=== PATIENT | female | born 1940 | race Caucasian/White ===

== ENCOUNTER 2017-04-21 13:31 | Day surgery (SDC) | payer MEDICARE ==
[~2017-04-21] VITALS: Ht 167.6 cm; Wt 119.8 kg
[~2017-04-21 13:31] MED LIST: Adult Low Dose81 MG PO; CIPR500 PO; CYCL10 PO; ENAL5; FURO40; Ferrous Sulfat325 M2 GT; Ferrous Sulfat325 MG; GLIP10ER PO; HYDACE5 PO; INSULANPEN; METF850 PO; NAPR550 PO; OXYACE5T PO; PARO10 PO; Pravachol40 MG PO; RXHYDACE PO; STOOL SOFTENER1 EAC1 PO; SYNTHROID175 MCG PO
== END 2017-04-21 16:28 | disposition home or self-care (01) ==
LOC: ORSCSDS 13:31
PROVIDERS: Internal Medicine Gastroenterology
PROC: 0DBL8ZX Excision of Transverse Colon, Via Natural or Artificial Opening Endoscopic, Diagnostic (ICD-10-PCS; principal; 2017-04-21 14:45)
PROC: 0DBK8ZX Excision of Ascending Colon, Via Natural or Artificial Opening Endoscopic, Diagnostic (ICD-10-PCS; principal; 2017-04-21 14:45)
PROC: 0DBH8ZX Excision of Cecum, Via Natural or Artificial Opening Endoscopic, Diagnostic (ICD-10-PCS; principal; 2017-04-21 14:45)
PROC: 0DB68ZX Excision of Stomach, Via Natural or Artificial Opening Endoscopic, Diagnostic (ICD-10-PCS; principal; 2017-04-21 14:45)
PROC: 0DBM8ZX Excision of Descending Colon, Via Natural or Artificial Opening Endoscopic, Diagnostic (ICD-10-PCS; principal; 2017-04-21 14:45)
DX: D50.9 Iron deficiency anemia, unspecified (principal); Z86.010 Personal history of colon polyps; K57.30 Diverticulosis of large intestine without perforation or abscess without bleeding; D12.0 Benign neoplasm of cecum; D12.3 Benign neoplasm of transverse colon; D12.4 Benign neoplasm of descending colon; K29.70 Gastritis, unspecified, without bleeding; I10 Essential (primary) hypertension; G47.33 Obstructive sleep apnea (adult) (pediatric); E11.9 Type 2 diabetes mellitus without complications; E03.9 Hypothyroidism, unspecified; E66.01 Morbid (severe) obesity due to excess calories; Z68.41 Body mass index [BMI] 40.0-44.9, adult; Z79.4 Long term (current) use of insulin; Z79.82 Long term (current) use of aspirin; Z79.899 Other long term (current) drug therapy
CPT/HCPCS: 82947; 87081; 88305; 88342

== ENCOUNTER 2018-06-14 06:06 | Day surgery (SDC) | payer MEDICARE ==
[~2018-06-14] VITALS: Ht 165.1 cm; Wt 119.8 kg
[~2018-06-14 06:06] MED LIST changes: -ENAL5; +ENAL5 PO; -FURO40; +FURO40 PO; -Ferrous Sulfat325 MG; +Ferrous Sulfat325 MG PO; -INSULANPEN; +INSULANPEN SC; +Stool Softener100 MG PO
[2018-06-14] MEDS ORDERED: INSULANPEN (06:42)
--- NOTE | 2018-06-14 06:49 | NUR ---
PT ADMITTED TO [facility]. AGREES WITH PLANNED SURGERY. MEDS, ALLERGIES AND HX REVIEWED. LUNG SOUNDS CLEAR.
--- NOTE | 2018-06-14 07:51 | NUR ---
06/14/18 0751 Kerri Joe ALL COUNTS CORRECT
--- NOTE | 2018-06-14 08:45 | NUR ---
Discharge instructions reviewed with patient. Patient verbalizes understanding. Copy given to patient to take home. Patient States Post-Procedure ride home has been arranged. DRESSING TO R HAND, DRY AND INTACT.
== END 2018-06-14 08:36 | disposition home or self-care (01) ==
LOC: ORSCMMR 06:06 → ORD 07:30 → ORSCMMR 07:30 → ORD 14:00 → ORSCMMR 14:00
PROVIDERS: Orthopaedic Surgery
PROC: 01N50ZZ Release Median Nerve, Open Approach (ICD-10-PCS; principal; 2018-06-14 07:30)
DX: G56.01 Carpal tunnel syndrome, right upper limb (principal); I10 Essential (primary) hypertension; E66.01 Morbid (severe) obesity due to excess calories; Z68.41 Body mass index [BMI] 40.0-44.9, adult; G47.33 Obstructive sleep apnea (adult) (pediatric); Z79.82 Long term (current) use of aspirin; Z79.84 Long term (current) use of oral hypoglycemic drugs; Z79.4 Long term (current) use of insulin
CPT/HCPCS: 82947; J0690; J2250; J3010; J7120

== ENCOUNTER 2018-09-14 08:24 | Day surgery (SDC) | payer MEDICARE ==
[2018-09-20 15:14] LABS: Performing Lab SYMBIODX; Test Name TISSUE BLOCK
[2018-09-27 19:26] LABS: Result SEE PATHOTH RESULTS
== END 2018-09-14 22:56 | disposition home or self-care (01) ==
LOC: MOI US 08:24
PROVIDERS: Internal Medicine
DX: C50.919 Malignant neoplasm of unspecified site of unspecified female breast (principal); Z17.0 Estrogen receptor positive status [ER+]; R92.8 Other abnormal and inconclusive findings on diagnostic imaging of breast
CPT/HCPCS: 19083; 77065; 88305; 88360; 88374; A4648; G0279

== ENCOUNTER 2018-10-08 08:13 | Day surgery (SDC) | payer MEDICARE | END 2018-10-08 23:19 | disposition home or self-care (01) | LOC: MOI MAM 08:13 | DX: C50.311 Malignant neoplasm of lower-inner quadrant of right female breast (principal) | CPT/HCPCS: 19285; 77065; A4648 ==

== ENCOUNTER 2019-06-05 12:47 | Day surgery (SDC) | payer MEDICARE ==
[~2019-06-05] VITALS: Ht 167.6 cm; Wt 122.2 kg
[2019-06-05] MEDS ORDERED: Primidone50 MG (13:10)
== END 2019-06-05 14:50 | disposition home or self-care (01) ==
LOC: ORSCSDS 12:47
PROVIDERS: Internal Medicine Gastroenterology
PROC: 0DB98ZX Excision of Duodenum, Via Natural or Artificial Opening Endoscopic, Diagnostic (ICD-10-PCS; principal; 2019-06-05 14:15)
PROC: 0DB68ZX Excision of Stomach, Via Natural or Artificial Opening Endoscopic, Diagnostic (ICD-10-PCS; principal; 2019-06-05 14:15)
DX: D50.9 Iron deficiency anemia, unspecified (principal); K29.70 Gastritis, unspecified, without bleeding; G47.33 Obstructive sleep apnea (adult) (pediatric); E11.9 Type 2 diabetes mellitus without complications; E66.9 Obesity, unspecified; Z68.41 Body mass index [BMI] 40.0-44.9, adult; Z79.82 Long term (current) use of aspirin; Z79.4 Long term (current) use of insulin; Z79.899 Other long term (current) drug therapy
CPT/HCPCS: 82947; 88305; 88341; 88342; J2704; J7120

== ENCOUNTER 2022-11-16 12:32 | Day surgery (SDC) | payer MEDICARE ==
[~2022-11-16] VITALS: Ht 167.6 cm; Wt 102.7 kg
[~2022-11-16 12:32] MED LIST changes: +Primidone50 MG
[2022-11-16] MEDS ORDERED: ROSU10TA (13:13)
[2022-11-16] MEDS ORDERED: [UNRECOGNIZED DRUG - OTHER] ×2 (13:13→13:16)
[2022-11-16 15:06] VITALS: BP 108/64
== END 2022-11-16 15:07 | disposition home or self-care (01) ==
LOC: ORSCSDS 12:32
PROVIDERS: Internal Medicine Gastroenterology
PROC: 0DBN8ZX Excision of Sigmoid Colon, Via Natural or Artificial Opening Endoscopic, Diagnostic (ICD-10-PCS; principal; 2022-11-16 14:00)
PROC: 0DB78ZX Excision of Stomach, Pylorus, Via Natural or Artificial Opening Endoscopic, Diagnostic (ICD-10-PCS; principal; 2022-11-16 14:00)
DX: K29.50 Unspecified chronic gastritis without bleeding (principal); Z86.010 Personal history of colon polyps; D12.5 Benign neoplasm of sigmoid colon; K57.30 Diverticulosis of large intestine without perforation or abscess without bleeding; E11.9 Type 2 diabetes mellitus without complications; G47.33 Obstructive sleep apnea (adult) (pediatric); E66.9 Obesity, unspecified; Z68.39 Body mass index [BMI] 39.0-39.9, adult
CPT/HCPCS: 82947; 88305; 88341; 88342; J2704; J7120